=== PATIENT | male | born 1950 | race Two or more races ===

== ENCOUNTER 2022-07-23 12:11 | Emergency (ER) | payer BC, OTHER ==
[~2022-07-23] VITALS: Ht 165.1 cm; Wt 95.5 kg
[2022-07-23 12:29] VITALS: BP 159/123
[2022-07-23 13:39] LABS: Albumin 3.6 g/dL (3.4-5.0); BUN/Creatinine Ratio 12.1; Calcium 8.8 mg/dL (8.5-10.1); Potassium 4.5 mmol/L (3.5-5.1)
[2022-07-23 13:41] LABS: Bilirubin, Total 0.6 mg/dL (0.2-1.0); Total Protein 6.8 g/dL (6.4-8.2)
[2022-07-23 14:43] LABS: Basophils # (auto) 0.1 10 ^3/uL (0-0.2); Basophils % (auto) 0.7 % (0.0-2.0); Eosinophils # (auto) 0.1 10 ^3/uL (0-0.8); Eosinophils % (auto) 1.2 % (0.0-7.0); Hematocrit 47.4 % (41.0-53.0); Hemoglobin 15.7 g/dL (13.5-17.5); Lymphocytes # (auto) 1.6 10 ^3/uL (0.4-5.4); Lymphocytes % (auto) 20.6 % (10.0-50.0); Mean Corpuscular Hemoglobin 32.9 pg (28.0-32.0); Mean Corpuscular Hgb Conc. 33.1 g/dL (32.0-36.0); Mean Corpuscular Volume 99.2 fL (80.0-100.0); Monocytes # (auto) 0.7 10 ^3/uL (0-1.3); Monocytes % (auto) 8.7 % (0.0-12.0); Neutrophils # (auto) 5.5 10 ^3/uL (1.6-8.6); Neutrophils % (auto) 68.8 % (37.0-80.0); Nucleated Red Blood Cells % 0.1 %; Red Blood Cells 4.78 10^6/uL (4.5-5.90)
[2022-07-23] MEDS ORDERED: LIDOCAINE 5% TOPICAL PATCH TOP ONE (15:00)
[2022-07-23] MEDS ORDERED: ACETAMINOPHEN 500 MG TAB PO ONE (15:00)
[2022-07-23 16:21] LABS: Urine Bacteria NONE SEEN /hpf (None Seen); Urine Blood Negative /uL (Negative); Urine Hyaline Cast FEW /lpf (0 - 2); Urine Mucus FEW (None Seen); Urine Specific Gravity 1.022 (1.001-1.035); Urine WBC 5 /hpf (0 - 3)
[2022-07-23] MEDS ORDERED: LIDO5DIS21 TOP (17:49)
== END 2022-07-23 19:02 | disposition home or self-care (01) ==
LOC: EDBD 12:11 → ER 12:11
DX: S20.212A Contusion of left front wall of thorax, initial encounter (principal); I10 Essential (primary) hypertension; E11.9 Type 2 diabetes mellitus without complications; X58.XXXA Exposure to other specified factors, initial encounter; Y93.89 Activity, other specified; Y92.89 Other specified places as the place of occurrence of the external cause; Y99.8 Other external cause status
CPT/HCPCS: 36415; 70450; 71101; 80053; 81001; 85025; 93005

== ENCOUNTER 2024-07-08 10:12 | Emergency (ER) | payer BC, OTHER ==
[~2024-07-08] VITALS: Ht 162.6 cm; Wt 89.4 kg
[~2024-07-08 10:12] MED LIST: LIDO5DIS21 TOP
[2024-07-08 11:34] VITALS: BP 147/88; PULSE 85; RESP 16; TEMP 97.9; O2SAT 95
[2024-07-08] MEDS: methylPREDNISolone SOD SUCC 125 MG/2 ML VL IM ONE (11:53)
[2024-07-08] MEDS: HYDROcodone-ACET 10/325MG TAB PO ONE (11:54)
[2024-07-08] MEDS ORDERED: TRAM-626 PO (12:11)
[2024-07-08] MEDS ORDERED: PRED20TA2 PO (12:11)
== END 2024-07-08 12:18 | disposition home or self-care (01) ==
LOC: ER 10:12
DX: M51.16 Intervertebral disc disorders with radiculopathy, lumbar region (principal); E11.9 Type 2 diabetes mellitus without complications; I10 Essential (primary) hypertension; Z79.899 Other long term (current) drug therapy
CPT/HCPCS: 72100; 82962; 96372; 99283; J2919